=== PATIENT | female | born 1980 | race Caucasian/White ===

== ENCOUNTER 2016-12-16 06:46 | Outpatient (CLI) | payer OTHER ==
[2016-12-16 07:38] LABS: BASOPHILS # (AUTO) 0.1 K/uL (0.0-0.2); BASOPHILS % (AUTO) 0.8 % (0.0-2.0); EOSINOPHILS # (AUTO) 0.4 K/uL (0.0-0.4); EOSINOPHILS % (AUTO) 3.6 % (0.0-4.0); HEMATOCRIT 43.9 % (36-48); HEMOGLOBIN 14.7 g/dL (12.0-16.0); LYMPHOCYTES # (AUTO) 2.4 K/uL (1.0-5.5); LYMPHOCYTES % (AUTO) 22.3 % (20.5-51.5); MEAN CORPUSCULAR HEMOGLOBIN 32 pg (27-31); MEAN CORPUSCULAR HGB CONC 34 % (32-36); MEAN CORPUSCULAR VOLUME 96 fL (79.0-98.0); MONOCYTES # (AUTO) 0.7 K/uL (0.0-1.0); MONOCYTES % (AUTO) 6.3 % (1.7-9.3); PLATELET COUNT (AUTO) 341 K/uL (130-430); RED BLOOD CELL COUNT(AUTO) 4.57 MIL/uL (4.2-6.2); RED CELL DISTRIBUTION WIDTH 12.5 % (9.0-15.0); WHITE BLOOD COUNT (AUTO) 10.6 K/uL (4.8-10.8)
[2016-12-16 07:59] LABS: CALCIUM 9.2 mg/dL (8.4-11.0); CREATININE 0.84 mg/dL (0.55-1.30); POTASSIUM 4.7 mmol/L (3.5-5.1); THYROID STIMULATING HORMONE 1.93 uIu/mL (0.34-4.82); TOTAL BILIRUBIN 0.4 mg/dL (0.0-1.0); TOTAL PROTEIN, SERUM 8.4 g/dL (6.4-8.3); URIC ACID 5.7 mg/dL (2.4-7.0)
[2016-12-16 08:01] LABS: BILIRUBIN,URINE NEGATIVE (NEGATIVE); BLOOD, URINE 1+ (NEGATIVE); CLARITY/URINE CLEAR (CLEAR); COLOR,URINE YELLOW (YELLOW); GLUCOSE,URINE NEGATIVE (NEGATIVE); KETONES,URINE NEGATIVE (NEGATIVE); LEUKOCYTE ESTERASE ,URINE NEGATIVE (NEGATIVE); NITRITE, URINE NEGATIVE (NEGATIVE); PROTEIN URINE NEGATIVE (NEGATIVE); UROBILINOGEN,URINE 0.2 (0.2-1.0)
[2016-12-16 08:24] LABS: BACTERIA,URINE FEW /HPF (None Seen); WBC,URINE 0-3 /HPF (0-3)
[2016-12-16 08:25] LABS: ERYTHROCYTE SEDIMENTATION RATE 18 MM/HR (0-20); MUCUS,URINE 1+ /LPF (None Seen)
[2016-12-17 13:00] LABS: HEMOGLOBIN A1C 5.8 % (4.8-5.6)
== END 2016-12-16 20:06 | disposition home or self-care (01) ==
LOC: SLB 06:46
PROVIDERS: ATTEND Internal Medicine
DX: Z00.00 Encounter for general adult medical examination without abnormal findings (principal)
CPT/HCPCS: 36415; 80053; 80061; 81000-TC; 82306; 83036; 84443-TC; 84550-TC; 85025; 85651-TC; 87086

== ENCOUNTER 2017-01-21 14:13 | Outpatient (CLI) | payer OTHER | END 2017-01-21 19:09 | disposition home or self-care (01) | LOC: SRD 14:13 | PROVIDERS: ATTEND Internal Medicine | DX: E04.1 Nontoxic single thyroid nodule (principal); E04.9 Nontoxic goiter, unspecified; N28.1 Cyst of kidney, acquired | CPT/HCPCS: 76536-TC; 76770 ==

== ENCOUNTER 2017-03-14 10:44 | Outpatient (CLI) | payer OTHER ==
[2017-03-15 08:25] LABS: ESTRADIOL 9.3 pg/mL (.); FOLLICLE STIMULATION HORMONE 5.3 mIU/mL (.); LUETENIZING HORMONE 2.8 mIU/mL (.)
== END 2017-03-14 20:54 | disposition home or self-care (01) ==
LOC: SLB 10:44
PROVIDERS: ATTEND Specialist
DX: N92.6 Irregular menstruation, unspecified (principal)
CPT/HCPCS: 36415; 82670; 83001; 83002; 84443-TC

== ENCOUNTER 2017-03-30 10:14 | Outpatient (CLI) | payer OTHER ==
[2017-03-30] MEDS ORDERED: IOHEXOL 100 ML IV ONE (10:47)
[2017-03-30 11:40] LABS: CALCIUM 9.1 mg/dL (8.4-11.0); CREATININE 0.74 mg/dL (0.55-1.30)
== END 2017-03-30 21:02 | disposition home or self-care (01) ==
LOC: SLB 10:14
PROVIDERS: ATTEND Urology
DX: N28.1 Cyst of kidney, acquired (principal)
CPT/HCPCS: 36415; 74178; 80048; Q9967

== ENCOUNTER 2017-07-10 06:59 | Outpatient (CLI) | payer OTHER ==
[2017-07-10 07:33] LABS: BASOPHILS % (AUTO) 0.4 % (0.0-2.0); EOSINOPHILS # (AUTO) 0.2 K/uL (0.0-0.4); HEMATOCRIT 43.3 % (36-48); HEMOGLOBIN 14.3 g/dL (12.0-16.0); LYMPHOCYTES # (AUTO) 3.1 K/uL (1.0-5.5); LYMPHOCYTES % (AUTO) 27.3 % (20.5-51.5); MEAN CORPUSCULAR HEMOGLOBIN 32 pg (27-31); MEAN CORPUSCULAR HGB CONC 33 % (32-36); MEAN CORPUSCULAR VOLUME 97 fL (79.0-98.0); MONOCYTES # (AUTO) 0.8 K/uL (0.0-1.0); MONOCYTES % (AUTO) 7.2 % (1.7-9.3); NEUTROPHILS # (AUTO) 7.3 K/uL (1.8-7.7); NEUTROPHILS % (AUTO) 63.1 % (40.0-70.0); PLATELET COUNT (AUTO) 296 K/uL (130-430); RED BLOOD CELL COUNT(AUTO) 4.46 MIL/uL (4.2-6.2); RED CELL DISTRIBUTION WIDTH 11.9 % (9.0-15.0); WHITE BLOOD COUNT (AUTO) 11.4 K/uL (4.8-10.8)
[2017-07-10 08:00] LABS: ALBUMIN 3.7 g/dL (3.4-4.8); CALCIUM 9.3 mg/dL (8.4-11.0); CREATININE 0.67 mg/dL (0.55-1.30); THYROID STIMULATING HORMONE 1.57 uIu/mL (0.34-4.82); TOTAL BILIRUBIN 0.4 mg/dL (0.0-1.0); URIC ACID 5.5 mg/dL (2.4-7.0)
== END 2017-07-10 17:41 | disposition home or self-care (01) ==
LOC: SLB 06:59
PROVIDERS: ATTEND Internal Medicine
DX: Z00.01 Encounter for general adult medical examination with abnormal findings (principal); R79.89 Other specified abnormal findings of blood chemistry
CPT/HCPCS: 36415; 80053; 80061; 82306; 82607; 83036; 84443-TC; 84550-TC; 85025

== ENCOUNTER 2017-09-01 07:14 | Outpatient (CLI) | payer OTHER ==
[2017-09-01] MEDS ORDERED: DIATR MEGLU/DIATRIZ SOD 30 ML SOLUTION PO ONE (07:28)
[2017-09-01] MEDS ORDERED: IOHEXOL 100 ML IV ONE (08:37)
[2017-09-01 08:45] LABS: ALBUMIN 3.7 g/dL (3.4-4.8); CALCIUM 9.1 mg/dL (8.4-11.0); CREATININE 0.59 mg/dL (0.55-1.30); POTASSIUM 4.1 mmol/L (3.5-5.1); TOTAL BILIRUBIN 0.6 mg/dL (0.0-1.0)
== END 2017-09-01 19:04 | disposition home or self-care (01) ==
LOC: SCT 07:14
PROVIDERS: ATTEND Internal Medicine
DX: E04.2 Nontoxic multinodular goiter (principal); N28.1 Cyst of kidney, acquired; K76.0 Fatty (change of) liver, not elsewhere classified; E78.5 Hyperlipidemia, unspecified
CPT/HCPCS: 36415; 74178; 76536; 80053; 80061; Q9964; Q9967

== ENCOUNTER 2017-11-17 13:42 | Outpatient (CLI) | payer OTHER ==
[2017-11-19 04:09] LABS: RUBELLA AB, IgM <20.0 AU/mL (0.0-19.9)
== END 2017-11-17 20:07 | disposition home or self-care (01) ==
LOC: SLB 13:42
PROVIDERS: ATTEND Internal Medicine
DX: B05.9 Measles without complication (principal)
CPT/HCPCS: 36415; 86735; 86762; 86765

== ENCOUNTER 2018-03-28 10:03 | Outpatient (CLI) | payer OTHER ==
[2018-03-28] MEDS ORDERED: IOHEXOL 100 ML IV ONE (10:22)
[2018-03-28 11:09] LABS: CALCIUM 9.2 mg/dL (8.4-11.0); CREATININE 0.78 mg/dL (0.55-1.30); POTASSIUM 4.2 mmol/L (3.5-5.1)
== END 2018-03-28 20:52 | disposition home or self-care (01) ==
LOC: SLB 10:03
PROVIDERS: ATTEND Urology
DX: D30.00 Benign neoplasm of unspecified kidney (principal)
CPT/HCPCS: 36415; 74178; 80048; Q9967

== ENCOUNTER 2018-04-06 15:26 | Outpatient (CLI) | payer OTHER ==
[2018-04-06 15:56] LABS: BILIRUBIN,URINE 1+ (NEGATIVE); BLOOD, URINE NEGATIVE (NEGATIVE); CLARITY/URINE CLEAR (CLEAR); COLOR,URINE YELLOW (YELLOW); GLUCOSE,URINE NEGATIVE (NEGATIVE); KETONES,URINE TRACE (NEGATIVE); LEUKOCYTE ESTERASE ,URINE NEGATIVE (NEGATIVE); NITRITE, URINE NEGATIVE (NEGATIVE); PH,URINE 5.5 (5.0-8.0); PROTEIN URINE TRACE (NEGATIVE)
[2018-04-06 15:59] LABS: EOSINOPHILS # (AUTO) 0.2 K/uL (0.0-0.4); EOSINOPHILS % (AUTO) 2.5 % (0.0-4.0); HEMATOCRIT 42.2 % (36-48); LYMPHOCYTES # (AUTO) 2.2 K/uL (1.0-5.5); MONOCYTES # (AUTO) 0.6 K/uL (0.0-1.0)
[2018-04-06 16:02] LABS: BACTERIA,URINE MODERATE /HPF (None Seen); MUCUS,URINE 1+ /LPF (None Seen); RBC,URINE 0-3 /HPF (0-3)
[2018-04-06 16:13] LABS: ALBUMIN 3.9 g/dL (3.4-4.8); CALCIUM 9.3 mg/dL (8.4-11.0); CREATININE 0.87 mg/dL (0.55-1.30); POTASSIUM 3.8 mmol/L (3.5-5.1); TOTAL BILIRUBIN 0.5 mg/dL (0.0-1.0)
[2018-04-06 16:21] LABS: BASOPHILS # (AUTO) 0.1 K/uL (0.0-0.2); BASOPHILS % (AUTO) 0.6 % (0.0-2.0); LYMPHOCYTES % (AUTO) 23.1 % (20.5-51.5); MEAN CORPUSCULAR HEMOGLOBIN 33 pg (27-31); MEAN CORPUSCULAR HGB CONC 33 % (32-36); MEAN CORPUSCULAR VOLUME 100 fL (79.0-98.0); MONOCYTES % (AUTO) 6.3 % (1.7-9.3); NEUTROPHILS # (AUTO) 6.3 K/uL (1.8-7.7); NEUTROPHILS % (AUTO) 67.5 % (40.0-70.0); PLATELET COUNT (AUTO) 352 K/uL (130-430); RED BLOOD CELL COUNT(AUTO) 4.24 MIL/uL (4.2-6.2); RED CELL DISTRIBUTION WIDTH 12.1 % (9.0-15.0); WHITE BLOOD COUNT (AUTO) 9.4 K/uL (4.8-10.8)
== END 2018-04-06 20:31 | disposition home or self-care (01) ==
LOC: SLB 15:26
PROVIDERS: ATTEND Internal Medicine
DX: N39.0 Urinary tract infection, site not specified (principal)
CPT/HCPCS: 36415; 80053; 81000-TC; 85025; 87086

== ENCOUNTER 2018-04-07 08:19 | Outpatient (CLI) | payer OTHER | END 2018-04-07 19:07 | disposition home or self-care (01) | LOC: SUS 08:19 | PROVIDERS: ATTEND Internal Medicine | DX: N28.1 Cyst of kidney, acquired (principal) | CPT/HCPCS: 76770 ==

== ENCOUNTER 2018-09-21 08:20 | Outpatient (CLI) | payer OTHER | END 2018-09-21 21:00 | disposition home or self-care (01) | LOC: SUS 08:20 | PROVIDERS: ATTEND Urology | DX: D30.00 Benign neoplasm of unspecified kidney (principal); N28.1 Cyst of kidney, acquired | CPT/HCPCS: 76770 ==